=== PATIENT | male | born 1955 | race Two or more races ===

== ENCOUNTER → 2025-04-19 | Emergency (ER) | payer OTHER ==
[~2025-04-19] VITALS: Ht 167.6 cm; Wt 73.5 kg
[~2025-04-19] MED LIST: ACETAMINOPHEN 500 MG GEL..CAP PO ONE; KETOROLAC TROMETHAMINE 30 MG VIAL IM ONE; LIPITOR20 MG PO; METFORMIN HCL500 M3 PO; MUPIROCIN22 GM TOP
[2025-04-19 13:08] VITALS: BP 126/73; O2SAT 96
== END | disposition home or self-care (01) ==
LOC: ER 12:07
DX: G89.11 Acute pain due to trauma (principal); R51.9 Headache, unspecified; I10 Essential (primary) hypertension; E11.9 Type 2 diabetes mellitus without complications; Z79.84 Long term (current) use of oral hypoglycemic drugs
CPT/HCPCS: 70450; 73560; 96372; 99284; J1885